=== PATIENT | female | born 1965 | race Caucasian/White ===

== ENCOUNTER 2022-12-18 12:06 | Emergency (ER) | payer OTHER ==
[~2022-12-18] VITALS: Ht 157.5 cm; Wt 75.0 kg
[~2022-12-18 12:06] MED LIST: AMOX/K CLAV875 M1 PO; AUGMENTIN875TAB PO; TYLENOL # 31 TA1 PO
[2022-12-18 12:25] VITALS: BP 164/90
[2022-12-18 12:30] VITALS: BP 154/85
[2022-12-18 12:46] VITALS: BP 162/90
[2022-12-18 13:18] LABS: BASO% 0.3 % (0-3); EOS% 1.9 % (0-8); HEMOGLOBIN 10.8 g/dl (12.0-16.0); IMMATURE GRANULOCYTES 0.2 % (0.0-5.0); MEAN CORPUSCULAR HGB 30.3 pG CALC (26.0-32.0); MEAN CORPUSCULAR HGB CONC 31.8 g/dL CAL (32.0-36.0); MONO% 4.4 % (2-13); NEUT# 8.03 thou/uL (2.00-7.15); NEUT% 71.2 % (42-76); RED BLOOD COUNT 3.57 mill/uL (4.20-5.60); RED CELL DISTRI WIDTH 13.1 % (11.5-15.5)
[2022-12-18 13:22] LABS: MEAN CELL VOLUME 95.2 fL CALC (80.0-100.0)
[2022-12-18 13:27] LABS: ALKALINE PHOSPHATASE 83 u/l (38-126); ANION GAP 11 (6-22 (CALC)); BILIRUBIN, TOTAL 0.5 mg/dL (0.02-1.3); BUN 17 mg/dL (7-17); BUN/CREATININE RATIO 19 (12-20 (CALC)); CARBON DIOXIDE 28 mmol/l (22-30); CHLORIDE 103 mmol/l (95-108); CREATININE 0.9 mg/dL (0.5-1.0); GFR FOR AFR.AMER. > 60 ML/MIN (>=60 (CALC)); GFR OTHER RACES > 60 ML/MIN (>=60 (CALC)); POTASSIUM 3.8 mmol/l (3.5-5.1); SGOT/AST 33 u/l (14-36); SODIUM 139 mmol/l (137-146); TOTAL PROTEIN 7.5 g/dL (6.3-8.2)
[2022-12-18] MEDS ORDERED: AMOX/K CLAV875 M1 PO (13:35)
[2022-12-18 14:06] VITALS: BP 162/90
== END 2022-12-18 14:23 | disposition home or self-care (01) | DRG 605 ==
LOC: ED 12:06
PROVIDERS: Nurse Practitioner Family
DX: S41.152A Open bite of left upper arm, initial encounter (principal); S71.151A Open bite, right thigh, initial encounter; W54.0XXA Bitten by dog, initial encounter; F17.200 Nicotine dependence, unspecified, uncomplicated